=== PATIENT | male | born 1965 | race Caucasian/White ===

== ENCOUNTER 2018-04-26 14:57 | Emergency (ER) | payer MEDICAID ==
[2018-04-26 15:05] VITALS: BP 145/93; PULSE 69; RESP 16; TEMP 97.6; O2SAT 96
--- NOTE | 2018-04-26 15:28 | C.PDOC ---
History Of Present Illness 52 yo male comes in for evaluation of Left elbow pain gradually developed for past 3 days. Pt reports, pain is localized over Left elbow, worse with left arm movement. 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 Otherwise, pt denies fever, chills, known trauma or injury, CP, SOB, dyspnea, diaphoresis, palpitation, denies weakness, sensory or vascular deficits to left arm. Ambulate to Ed for evaluation, appears in pain. 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 Constitutional: Negative for: Fever, Chills Cardiovascular: Negative for: Chest Pain, Palpitations, Edema, Light Headedness Respiratory: Negative for: Cough, Shortness of Breath Gastrointestinal: Negative for: Nausea, Vomiting, Abdominal Pain Musculoskeletal: Positive for: Other (left elbow pain). Negative for: Neck Pain, Back Pain Skin: Negative for: Rash, Lesions, Bruising Neurological: Negative for: Weakness, Numbness Physical Exam - Physical Exam Appears: Non-toxic, Other (in pain) Skin: Normal Color, Warm, No Rash, No Cyanotic, No Ecchymosis Head: Normacephalic Cardiovascular: Rhythm Regular, No Murmur, No JVD Respiratory: No Decreased Breath Sounds, No Accessory Muscle Use, No Stridor, No Wheezing Extremity: Normal ROM (deacrease Left elbow flexion/extension due to pain), Tenderness (diffuse over left olecranon. NO palpable defomrity, no edema, or erythema, (+) mild warmth to touch), No Deformity, No Swelling Neurological/Psych: Oriented x3, Normal Speech, Normal Motor, Normal Sensation, Normal Reflexes ED Course And Treatment O2 Sat by Pulse Oximetry: 96 Progress Note: On re-eval, pt is afebrile, hemodynamicaly stable. Non-toxic. Neck: Supple, (-) midline tenderness. Lungs: CTA B/L, BS equal B/L. CVS: (+)S1S2, reg. LUE: tender over Left olecranon, mild edema, warmth, No erythema, no proximal streaking. No deformity. No neurovascular deficits. Imagings review (+) miold DJD, no acute fx or dislocation. Sling applied to left arm. Pt has clinical findings c/w left elbow arthralgia, no evidence of cellulitis. Pt advised and ref. to f/u with PMD, Ortho in 2 -3 days for re-eval. return to Ed if any new changes. Disposition Counseled Patient/Family Regarding: Studies Performed, Diagnosis, Need For Followup, Rx Given - Disposition Referrals: Selin Milner MD [Medical Doctor] - Russel Ko MD [Staff Provider] - Disposition: HOME/ ROUTINE Disposition Time: 15:46 Condition: STABLE Additional Instructions: Arm sling for 1 week Take medication as prescribed Follow up with PMD, orthopedist in2 -3 days for re-evaluation. return to ED if any worsening or new changes. Prescriptions: Prednisone [Deltasone] 40 mg PO DAILY #6 tablet traMADol [Ultram] 50 mg PO TID #7 tab Instructions: Joint Pain, Tendonitis (DC) Forms: [employer] (Vietnamese) - Clinical Impression Clinical Impression: Arthralgia of elbow
--- NOTE | 2018-04-26 17:20 | RAD ---
Date of service: The 04/26/2018 PROCEDURE: Radiographs of the left elbow. HISTORY: pain COMPARISON: No prior. FINDINGS: BONES: No evidence of acute displaced fracture nor dislocation. Two tiny bony the calcified appearing densities seen within the soft tissues adjacent to the lateral epicondyle. Findings could represent sequela of lateral epicondylitis. Clinic correlation recommended JOINTS: Normal. No osteoarthritis. SOFT TISSUES: Normal. JOINT EFFUSION: None. OTHER FINDINGS: None IMPRESSION: No evidence of acute displaced fracture nor dislocation. Two tiny bony the calcified appearing densities seen within the soft tissues adjacent to the lateral epicondyle. Findings could represent sequela of lateral epicondylitis. Clinic correlation recommended
== END 2018-04-26 15:58 | disposition home or self-care (01) ==
LOC: C.ER 14:57
DX: M25.522 Pain in left elbow (principal); I10 Essential (primary) hypertension; Z72.0 Tobacco use